=== PATIENT | male | born 1950 | race Caucasian/White ===

== ENCOUNTER → 2017-02-23 | Day surgery (SDC) | payer BC, MEDICARE ==
[~2017-02-23] VITALS: Ht 175.3 cm; Wt 78.8 kg
[~2017-02-23] MED LIST: CENTRUM SILVER1 EAC2 PO; CLINDAMYCIN HC300 MG PO; COQ10-VIT E 201 EACH PO; FISH OIL 500 M1 EAC1 PO; NORCO 5-325 TA1 EACH PO; RED YEAST RICE600 MG PO; TYLENOL325 MG PO; ZYLOPRIM100 MG PO
--- NOTE | ~2017-02-23 | OR ---
PATIENT'S NAME: JYOTHI CALZADA [facility] AGE: 67 Y [address] ROOM: [place] [address] [place] [facility] [place]: 02/23/2017 OR/Procedure Report DISCHARGE DATE: FAMILY PHYSICIAN: MONSERRAT JEROME ATTENDING PHYSICIAN: MUSTAPHA HUSTON SURGEON: Mustapha Huston MD POULTRY VACCINATOR: None. DATE OF PROCEDURE: 02/23/2017 PREOPERATIVE DIAGNOSIS: Right cervical lymphadenopathy. POSTOPERATIVE DIAGNOSIS: Right cervical lymphadenopathy. PROCEDURE: Excision of deep cervical nodes from the right posterior neck. ANESTHESIA: Local with MAC. COMPLICATIONS: None. ESTIMATED BLOOD LOSS: 5 mL. SPECIMENS: Right cervical node for permanent specimen. FINDINGS: Enlarged right lateral neck and posterior cervical lymphadenopathy. INDICATIONS: The patient is a 67-year-old male with a history of an aggressive melanoma of the chest previously underwent left cervical lymphadenectomy as well as axillary lymphadenectomy. Recently he developed fairly acute onset tender, but massively enlarged right cervical lymphadenopathy. Numerous labs were obtained including EBV titers, which were suggestive of EBV infection but were not conclusive for acute infection. Given the patient's history as well as concern for lymphoma, we decided to perform a lymph node biopsy which the patient consented to after discussing risks, benefits, and alternatives. DESCRIPTION OF PROCEDURE: The patient was brought to the preoperative area to the operative suite, placed on table supine position. All pressure points were padded. Time-out was performed and correctly identifying the patient procedure. MAC anesthesia was initiated and then injection of 1% lidocaine with epinephrine and 0.5% Marcaine with epinephrine was performed along a skin crease in the right posterior neck overlying a prominent lymph node. Once the anesthesia was obtained, the neck was prepped and draped in the usual sterile fashion. A linear incision was made in the skin crease and dissection was performed through the skin. Subcutaneous fat with cautery. The posterior border of the SCM muscle was identified and dissecting around this muscle. We PATIENT'S NAME: JYOTHI CALZADA [facility] AGE: 67 Y [address] ROOM: [place] [address] [place] [facility] [place]: 02/23/2017 OR/Procedure Report DISCHARGE DATE: FAMILY PHYSICIAN: MONSERRAT JEROME ATTENDING PHYSICIAN: MUSTAPHA HUSTON entered the compartment with the lymph nodes. The accessory nerve was identified in this area with note of interest and dissected cleanly off the lymph node without interruption. Lymph node itself was dissected fully circumferentially and removed. This was found to be about 2 cm white solid. There were other lymph nodes in the area that were left alone. There was no significant bleeding. The area was irrigated. The neck was closed in layers with 4-0 Monocryl sutures deep and 5-0 running Fast through the skin. The patient was returned to the care of Anesthesia for awakening and transferred to the recovery room in stable condition. MD CIARA DODGE/chanelle /[id number] d: 02/23/17 1317 t: 03/02/17 0807, OPERATIVE SUMMARY
== END ==
LOC: GPOC 02-16 11:00 → GSDC 07:00
PROC: 07B10ZX Excision of Right Neck Lymphatic, Open Approach, Diagnostic (ICD-10-PCS; principal; 2017-02-23)
DX: R59.0 Localized enlarged lymph nodes (principal); M10.9 Gout, unspecified; M19.90 Unspecified osteoarthritis, unspecified site; Z88.0 Allergy status to penicillin; Z79.899 Other long term (current) drug therapy
CPT/HCPCS: J7120